=== PATIENT | male | born 1995 | race Caucasian/White ===

== ENCOUNTER 2017-02-11 12:20 | Emergency (ER) | payer BC ==
--- NOTE | ~2017-02-11 | CR63 ---
[facility] A Service of [facility] RADIOLOGY TEXT RESULTS PATIENT: IRMA LANDON LOCATION: [facility] : [birth year] UNIT #: [id number] AGE: [address]: Chris Garsia MD SEX: M ORDER DR: [id number] [facility] [address] [place], [place] [address] [id number] E MR#: [id number] Acc #: [id number] NAME: IMRA LANDON : 1995 SEX: M STUDY DATE/TIME: 02/11/2017 11:34 UNIT: [facility] ROOM: STUDY DESCRIPTION: CR Chest 2 View Attending Physician: Chris Garsia M.D. Ordering Physician: Chris Garsia M.D. Primary Care Physician: No Primary Care Physician MEDICAL IMAGING REPORT This report is preliminary unless electronic signature is present EXAM Chest, PA and lateral, 02/11/2017. HISTORY Heart racing after taking cough medicine this morning with shortness of breath. Cough for 1 week. FINDINGS PA and lateral examination of the chest upright shows a good expansion of the parenchyma with a normal distribution of the pulmonary vascularity. There is no indication of congestion, effusion, infiltrate, tumor, or nodular density. The pleural reflections and diaphragmatic contours are normal. The cardiac silhouette and mediastinal anatomy is within normal limits. IMPRESSION Normal chest. Dictated by... Dwight Jimenes M.D. THIS IS AN ELECTRONICALLY VERIFIED REPORT Dwight Jimenes M.D. at 02/12/2017 8:14 AM BROOKE/alexandrea TD: 02/11/2017 13:46 JOB #: [id number] MEDICAL IMAGING REPORT Page 1 of 1 COPY
--- NOTE | ~2017-02-11 | EKG ---
PATIENT: IRMA LANDON UNIT #: [id number] Ventricular Rate: 77 BPM Atrial Rate: 77 BPM P-R Interval: 146 ms QRS Duration: 80 ms Q-T Interval: 326 ms QTC Calculation(Bezet): 368 ms P [place]: 52 degrees Calculated R [place]: 29 degrees Calculated T [place]: 33 degrees Diagnosis Line: Normal sinus rhythm with sinus arrhythmia Diagnosis Line: Normal ECG Diagnosis Line: No previous ECGs available Diagnosis Line: Confirmed by KASHIF LOW MD ([id number]) on 02/12/2017 Diagnosis Line: 3:30:28 PM INTERPRETING MD: MARANDA PALMER
== END 2017-02-11 12:27 | disposition home or self-care (01) ==
LOC: CED 12:20
DX: R00.2 Palpitations (principal); R42 Dizziness and giddiness
CPT/HCPCS: 71020; 93005; 99283